=== PATIENT | male | born 1950 | race Caucasian/White ===

== ENCOUNTER → 2023-03-31 | Outpatient (CLI) | payer OTHER, SELFPAY ==
--- NOTE | 2023-03-31 08:37 | ECHOD_ITS ---
Reason For Study: CAD/ASHD Procedure This was a 2D Doppler, Color Flow transthoracic echocardiogram. Exam performed in department. Left Ventricle Normal LV size. Left ventricular systolic function is normal. The estimated ejection fraction is 55 %. Normal diastology for age. No regional wall motion abnormalities noted. Right Ventricle Normal RV size. Normal systolic function. Atria The left atrium is mildly enlarged. Normal right atrium. Mitral Valve Status post mitral valve repair with annuloplasty ring. Tricuspid Valve Normal tricuspid valve. Mild (1+) tricuspid valve insufficiency. Pulmonary artery systolic pressure is 32 mmHg. Aortic Valve Trisinus/trileaflet aortic valve. Mild (1+) aortic valve insufficiency. Pulmonic Valve Normal pulmonic valve. Great Vessels Normal aortic root. The pulmonary artery is normal size. Normal inferior vena cava. Pericardium/Pleural No pericardial effusion. MMode/2D Measurements & Calculations LVIDd: 5.0 cm IVSd: 1.1 cm LVOT diam: 2.1 cm LVIDs: 3.8 cm LVPWd: 0.86 cm LVOT area: 3.4 cm2 FS: 25.3 % Ao root diam: 3.7 cm LAV(MOD-bp): 68.0 ml LVAd ap4: 33.3 cm2 LAV(MOD-bp) Indexed: 36.5 ml/m2 LVLd ap4: 8.5 cm LAV(MOD-sp2): 65.6 ml EDV(MOD-sp4): 112.4 ml LAV(MOD-sp4): 66.6 ml EDV(sp4-el): 111.3 ml LVAs ap4: 21.1 cm2 LVLs ap4: 7.2 cm ESV(MOD-sp4): 56.4 ml ESV(sp4-el): 52.6 ml EF(MOD-sp4): 49.8 % EF(sp4-el): 52.7 % LVAd ap2: 29.5 cm2 SV(MOD-sp4): 55.9 ml SV(MOD-sp2): 51.7 ml LVLd ap2: 8.2 cm EDV(MOD-sp2): 93.9 ml EDV(sp2-el): 89.8 ml LVAs ap2: 18.5 cm2 LVLs ap2: 7.3 cm ESV(MOD-sp2): 42.2 ml ESV(sp2-el): 39.7 ml EF(MOD-sp2): 55.1 % SV(sp4-el): 58.7 ml LA dimension(2D): 4.1 cm LA A4 area: 21.5 cm2 RA A4 area: 18.0 cm2 TAPSE: 1.2 cm Time Measurements MV dec time: 0.23 sec Doppler Measurements & Calculations MV E max mahin: 118.8 cm/sec Lat Peak E' Mahin: 13.9 cm/sec Med Peak E' Mahin: 11.1 cm/sec MV A max mahin: 109.9 cm/sec E/E' lat: 8.6 E/E' med: 10.7 MV E/A: 1.1 MV V2 max: 142.4 cm/sec Ao V2 max: 260.0 cm/sec MV max P.1 mmHg MV dec slope: 533.1 cm/sec2 Ao max P.0 mmHg MV V2 mean: 89.7 cm/sec Ao V2 mean: 184.7 cm/sec MV mean P.6 mmHg Ao mean P.2 mmHg MV V2 VTI: 51.8 cm Ao V2 VTI: 58.5 cm AV (velocity ratio): 0.54 MVA(VTI): 2.1 cm2 PAPA(I,D): 1.9 cm2 PAPA(V,D): 1.7 cm2 AI max mahin: 356.9 cm/sec LV V1 max: 129.3 cm/sec SV(LVOT): 108.9 ml AI max P.2 mmHg LV V1 max P.7 mmHg AI dec slope: 199.5 cm/sec2 LV V1 mean P.8 mmHg AI P1/2t: 524.0 msec LV V1 mean: 92.4 cm/sec LV V1 VTI: 31.6 cm PA V2 max: 162.1 cm/sec TR max mahin: 265.2 cm/sec PA V2 mean: 113.1 cm/sec TR max P.1 mmHg ECHO/Echo Complete Interpretation Summary Status post mitral valve repair with annuloplasty ring. Normal LV size. Left ventricular systolic function is normal. The estimated ejection fraction is 55 %. The left atrium is mildly enlarged. Mild (1+) aortic valve insufficiency. Ordering Physician: Julio Cesar Eddy Referring Physician: Julio Cesar Eddy Performed By: Bridgette Noel RCS
== END | disposition home or self-care (01) ==
LOC: CVS 08:34
PROVIDERS: Referring Provider Chiropractor; Visit Provider Chiropractor
DX: I25.10 Atherosclerotic heart disease of native coronary artery without angina pectoris (principal)
CPT/HCPCS: 93306